=== PATIENT | female | born 1990 | race Caucasian/White ===

== ENCOUNTER 2022-10-26 14:43 | Emergency (ER) | payer BC ==
[~2022-10-26] VITALS: Ht 167.6 cm; Wt 127.0 kg
[2022-10-26 14:49] VITALS: BP 139/74; TEMP 98.6
[2022-10-26] MEDS ORDERED: KETOROLAC TROMETHAMINE INJ 60 MG/2 ML VIAL IM ONE (16:30)
[2022-10-26] MEDS ORDERED: KETOROLAC TROMETHAMINE INJ 30 MG/ML VIAL ONE (16:34)
[2022-10-26] MEDS ORDERED: IBUP-1955 PO (16:35)
[2022-10-26 16:48] VITALS: O2SAT 98
== END 2022-10-26 16:49 | disposition home or self-care (01) ==
LOC: ER 14:43
DX: R51.9 Headache, unspecified (principal); E03.9 Hypothyroidism, unspecified; Z79.899 Other long term (current) drug therapy; Z60.2 Problems related to living alone
CPT/HCPCS: 99283; 96372; J1885